=== PATIENT | female | born 1980 | race Caucasian/White ===

== ENCOUNTER 2024-09-13 17:53 | Inpatient (IN) ==
[2024-09-13] MEDS ORDERED: Lactated Ringers 1000 ml BAG 1,000 ML IV ONE (18:44)
[2024-09-13] MEDS ORDERED: Lidocaine 1% VIAL 10 MG/ML 30 ML VIAL INJ PRN (18:44)
[2024-09-13] MEDS ORDERED: Buffered Lidocaine 1% SYRIN 1 ml INTRADERM ONE (18:44)
[2024-09-13] MEDS: Dinoprostone 10 MG VAG.SUPP VAGINAL ONE (19:24)
[2024-09-13 20:12] LABS: Urine Benzodiazepine Screen None Detected (None Detect); Urine Cannabinoids Screen None Detected (None Detect); Urine Opiates Screen None Detected (None Detect)
[2024-09-14] MEDS: Lidocaine 2% JELLY 6 ML Topical TOPICAL ONE ×2 (09:00→23:48)
[2024-09-14] MEDS: miSOPROStol 100 mcg TAB PO ONE ×3 (10:32→19:22)
[2024-09-14 10:57] LABS: ABS Basophils 0.1 10^3/uL (0.0-0.1); ABS Eosinophils 0.1 10^3/uL (0.0-0.5); ABS Monocytes 0.6 10^3/uL (0.0-0.9); ABS Neutrophils 8.4 10^3/uL (1.5-7.6); ABS Nucleated RBC 0.01 10^3/ul; Eosinophil % 0.9 %; Hematocrit 41.8 % (35-45); Hemoglobin 14.3 g/dL (11.5-14.3); Lymphocyte % 17.7 %; Mean Corpuscular Hemoglobin 31.5 pg (27-33); Mean Corpuscular Hgb Conc 34.2 g/dL (31-36); Mean Platelet Volume 9.7 fL (7.5-11.2); Nucleated Red Blood Cells % 0.1 %/100WBC (0.0-0.8); Platelet Count 358 10^3/uL (150-450); Red Blood Count 4.55 10^6/uL (3.63-4.92); Red Cell Distribution Width 13.6 % (12-17); White Blood Count 11.1 10^3/uL (3.8-11.8)
[2024-09-15] MEDS: miSOPROStol 100 mcg TAB PO ONE (05:50)
[2024-09-15] MEDS: Lidocaine 2% JELLY 6 ML Topical TOPICAL ONE ×2 (11:00)
[2024-09-15] MEDS: miSOPROStol 100 mcg TAB ONE (12:09)
[2024-09-15] MEDS: Lidocaine 2% JELLY 6 ML Topical TOPICAL PRN (16:35)
[2024-09-15] MEDS: Dinoprostone 10 MG VAG.SUPP VAGINAL ONE (17:48)
[2024-09-16] MEDS: Lactated Ringers 1000 ml BAG 1,000 ML IV SCH (11:06)
[2024-09-16] MEDS: Oxytocin in LR 20,000 MILLI.UNIT/1,000 ML BAG IV SCH (11:07)
== END 2024-09-16 20:40 | disposition home or self-care (01) | DRG 833 ==
LOC: MCHOBOUT 17:53 → MCHOB 18:57
PROVIDERS: ADMIT Midwife; ATTEND Midwife

== ENCOUNTER 2024-09-17 11:00 | Inpatient (IN) ==
[2024-09-17] MEDS: Lactated Ringers 1000 ml BAG 1,000 ML IV ONE (12:00)
[2024-09-17] MEDS ORDERED: Nalbuphine 10 MG/ML 1 ML VIAL IV PRN (13:04)
[2024-09-17] MEDS ORDERED: Lidocaine 1% VIAL 10 MG/ML 30 ML VIAL INJ PRN (13:04)
[2024-09-17] MEDS: miSOPROStol 100 mcg TAB PO ONE ×3 (13:26→23:49)
[2024-09-17] MEDS: Buffered Lidocaine 1% SYRIN 1 ml INTRADERM ONE (13:27)
[2024-09-17 13:36] LABS: ABS Basophils 0.1 10^3/uL (0.0-0.1); ABS Eosinophils 0.1 10^3/uL (0.0-0.5); ABS Lymphocytes 1.9 10^3/uL (1.0-4.8); ABS Monocytes 0.7 10^3/uL (0.0-0.9); ABS Neutrophils 6.9 10^3/uL (1.5-7.6); Eosinophil % 0.8 %; Hematocrit 41.1 % (35-45); Lymphocyte % 19.9 %; Mean Corpuscular Hemoglobin 30.9 pg (27-33); Mean Corpuscular Hgb Conc 34.1 g/dL (31-36); Mean Corpuscular Volume 90.8 fL (80-97); Mean Platelet Volume 9.6 fL (7.5-11.2); Platelet Count 338 10^3/uL (150-450); Red Blood Count 4.53 10^6/uL (3.63-4.92); Red Cell Distribution Width 13.7 % (12-17); White Blood Count 9.6 10^3/uL (3.8-11.8)
[2024-09-17] MEDS: Lidocaine 2% JELLY 6 ML Topical TOPICAL ONE (22:26)
[2024-09-18] MEDS: miSOPROStol 100 mcg TAB PO ONE (04:29)
[2024-09-18] MEDS: Lactated Ringers 1000 ml BAG 1,000 ML IV SCH (08:45)
[2024-09-18] MEDS: Lidocaine 2% JELLY 6 ML Topical TOPICAL PRN (10:08)
[2024-09-18] MEDS: miSOPROStol 100 mcg TAB VAGINAL ONE ×2 (10:41→15:30)
[2024-09-18] MEDS ORDERED: Terbutaline INJ 1 MG/ML 1 ml VIAL IV PRN (11:20)
[2024-09-18] MEDS ORDERED: Ondansetron 4 mg VIAL 2 MG/ML 2 ml VIAL IV PRN (20:02)
[2024-09-18] MEDS ORDERED: Naloxone 0.4 mg VIAL 0.4 mg/ml 1 ml VIAL IV PUSH PRN (20:02)
[2024-09-18] MEDS ORDERED: Morphine PF AMP (0.5MG/ML) 5 MG/10 ML AMP ONE (20:20)
[2024-09-18] MEDS ORDERED: Phenylephrine IV 10 MG/ML 1 ml VIAL ONE (20:23)
[2024-09-18] MEDS ORDERED: Dexamethasone IV 4 MG/ML VIAL 1 ml VIAL ONE (20:29)
[2024-09-18] MEDS ORDERED: Ondansetron 4 mg VIAL 2 MG/ML 2 ml VIAL ONE (20:29)
[2024-09-18] MEDS: ceFOXitin 2 GM IVPREMIX 2 GM/50 ML BAG IVPB ONE (20:44)
[2024-09-18] MEDS: Sodium Citrate/Citric Acid LIQ 15 ML UDC PO ONE (20:44)
[2024-09-18] MEDS ORDERED: Lidocaine 2% PF 10 ML AMP (OR) ONE (21:30)
[2024-09-18] MEDS ORDERED: Oxytocin 10 UNITS/ML 1 ML VIAL ONE ×2 (21:30→21:32)
[2024-09-18] MEDS ORDERED: Metoclopramide 5 MG/ML VIAL (10 mg) ONE (21:35)
[2024-09-18] MEDS ORDERED: Acetaminophen IV 1 GM/100ML 1,000 MG/100 ML BAG IV ONE (21:42)
[2024-09-18] MEDS ORDERED: Witch Hazel PAD JAR TOPICAL PRN (22:02)
[2024-09-18] MEDS ORDERED: Glycerin ADULT 2.4 gm SUPP PR PRN (22:02)
[2024-09-18] MEDS ORDERED: Dibucaine 1% OINT 28.35 GM TUBE PR PRN (22:02)
[2024-09-18] MEDS: Oxytocin in LR 20,000 MILLI.UNIT/1,000 ML BAG IV SCH (22:05)
[2024-09-18 22:10] LABS: Urine Appearance Clear; Urine Bilirubin Negative (Negative); Urine Blood Negative (Negative); Urine Color Colorless; Urine Glucose Negative (Negative); Urine Ketones Negative (Negative); Urine Nitrite Negative (Negative); Urine Protein Negative (Negative); Urine Urobilinogen Negative (Negative)
[2024-09-18] MEDS: Methylergonovine 0.2 mg AMPULE 1 ml AMP IM ONE (22:28)
[2024-09-18] MEDS ORDERED: Lactated Ringers 1000 ml BAG 1,000 ML IV SCH (23:00)
[2024-09-19] MEDS: Prochlorperazine 5 mg/ml 2 ml VIAL (10 mg) IV PRN (01:21)
[2024-09-19 04:17] LABS: Urine Benzodiazepine Screen None Detected (None Detect); Urine Cannabinoids Screen None Detected (None Detect); Urine Opiates Screen None Detected (None Detect)
[2024-09-19 07:38] LABS: ABS Basophils 0.1 10^3/uL (0.0-0.1); ABS Neutrophils 19.8 10^3/uL (1.5-7.6); Hematocrit 41.2 % (35-45); Hemoglobin 14.1 g/dL (11.5-14.3); Lymphocyte % 4.4 %; Mean Corpuscular Hgb Conc 34.2 g/dL (31-36); Mean Corpuscular Volume 90.6 fL (80-97); Mean Platelet Volume 9.4 fL (7.5-11.2); Platelet Count 316 10^3/uL (150-450); Red Blood Count 4.54 10^6/uL (3.63-4.92); Red Cell Distribution Width 13.6 % (12-17); White Blood Count 21.9 10^3/uL (3.8-11.8)
[2024-09-19] MEDS: Acetaminophen IV 1 GM/100ML 1,000 MG/100 ML BAG IV PRN (11:39)
[2024-09-21 09:51] VITALS: BP 127/81
== END 2024-09-21 15:34 | disposition home or self-care (01) | DRG 788 ==
LOC: EDSTATUS 11:00 → MCHOB 11:39
PROVIDERS: ADMIT Advanced Practice Midwife; ATTEND Obstetrics & Gynecology